=== PATIENT | male | born 1980 | race Caucasian/White ===

== ENCOUNTER 2019-04-30 08:52 | Emergency (ER) | payer BC ==
[~2019-04-30] VITALS: Ht 170.2 cm; Wt 118.2 kg
[2019-04-30 09:21] LABS: CLARITY,URINE CLOUDY (Clear); COLOR,URINE BROWN (Yellow)
[2019-04-30 09:26] LABS: UA COLLECTION TYPE CLN CATCH MIDSTREAM
[2019-04-30] MEDS ORDERED: morphine 4 MG/ML inj SYRINge IV ONE (09:30)
[2019-04-30 09:31] LABS: AMORPHOUS URATES 1+; BACTERIA,URINE FEW /HPF (Neg); MUCUS STRANDS FEW /LPF (Neg); RBC,URINE TNTC /HPF (0-2); SQUAMOUS EPITHELIAL CELL,UR FEW /LPF (FEW); WBC,URINE 0-4 /HPF (0-4)
[2019-04-30] MEDS ORDERED: ondansetron/PF 4mg/2ml inj IV ONE (09:40)
[2019-04-30] MEDS ORDERED: ketorolac tromethamine 15mg/ml inj. IV ONE (09:40)
[2019-04-30 09:42] LABS: BASOPHILS # (AUTO) 0.1 X10'3 (0-0.2); BASOPHILS % (AUTO) 0.5 % (0-1); EOSINOPHILS # (AUTO) 0.2 X10'3 (0-0.9); EOSINOPHILS % (AUTO) 1.8 % (0-6); HEMATOCRIT 49.4 % (42.0-52.0); HEMOGLOBIN 17.3 g/dl (14.0-17.9); LYMPHOCYTES # (AUTO) 1.5 X10'3 (1.1-4.8); LYMPHOCYTES % (AUTO) 13.9 % (21-51); MEAN CORPUSCULAR HEMOGLOBIN 32.6 PG (27.0-31.0); MEAN CORPUSCULAR VOLUME 93.3 FL (78-98); MEAN PLATELET VOLUME 8.3 FL (7.4-10.4); MONOCYTES # (AUTO) 0.4 X10'3 (0-0.9); MONOCYTES % (AUTO) 3.9 % (2-12); NEUTROPHILS # (AUTO) 8.7 X10'3 (1.8-7.7); NEUTROPHILS % (AUTO) 79.9 % (42-75); PLATELET COUNT 214 X10'3 (140-440); RED BLOOD COUNT 5.29 X10'6 (4.70-6.10); RED CELL DISTRIBUTION WIDTH 12.7 % (11.5-14.5); WHITE BLOOD COUNT 10.9 X10'3 (4.5-11.0)
[2019-04-30 09:53] LABS: BLOOD UREA NITROGEN 12 MG/DL (7-18); BUN/CREATININE RATIO 8.7 (5.4-32.0); CALCIUM 8.8 MG/DL (8.5-10.1); CREATININE 1.38 MG/DL (0.60-1.10); GLUCOSE 290 MG/DL (70-104); LIPASE 168 U/L (73-393); eGFR 58 ML/MIN
[2019-04-30 10:11] LABS: ALANINE AMINOTRANSFERASE 80 U/L (12-78); ALKALINE PHOSPHATASE 64 IU/L (46-116); ANION GAP 7 (8-16); ASPARTATE AMINO TRANSFERASE 30 U/L (10-37); BILIRUBIN,TOTAL 0.9 MG/DL (0.1-1.0); CHLORIDE 102 MMOL/L (99-107); POTASSIUM 4.5 MMOL/L (3.5-5.1); SODIUM 137 MMOL/L (135-145); TOTAL CARBON DIOXIDE 28.5 MMOL/L (24-32); TOTAL PROTEIN 8.2 G/DL (6.4-8.2)
[2019-04-30] MEDS ORDERED: normal saline 1000ML IV soln IVB ONE (10:20)
[2019-04-30] MEDS ORDERED: HYDR-3965 PO (11:06)
[2019-04-30] MEDS ORDERED: ONDA4TAB6 PO (11:06)
[2019-04-30] MEDS ORDERED: FLO0.4C PO (11:06)
[2019-04-30 11:42] VITALS: BP 129/74
== END 2019-04-30 11:44 | disposition home or self-care (01) ==
LOC: ER 08:53
DX: N23 Unspecified renal colic (principal); N50.811 Right testicular pain; R11.0 Nausea; I10 Essential (primary) hypertension; Z79.899 Other long term (current) drug therapy; Z98.890 Other specified postprocedural states; Z87.442 Personal history of urinary calculi
CPT/HCPCS: 36415; 80053; 81001; 83690; 85025; 96374; 96375; 99284; J1885; J2405; J7030; 99283